=== PATIENT | female | born 1990 | race Caucasian/White ===

== ENCOUNTER 2018-01-26 20:01 | Emergency (ER) | payer MEDICAID, OTHER ==
[~2018-01-26] VITALS: Ht 157.5 cm; Wt 115.2 kg
[~2018-01-26 20:01] MED LIST: DM/P295L2 PO; IBUP400T18 PO
[2018-01-26 20:02] VITALS: BP 156/89
--- NOTE | 2018-01-26 20:39 | PHYS DOC ---
Past History Past Medical History: Hypothyroid, Other Past Surgical History: Cholecystectomy, , Tonsillectomy, Other Alcohol Use: None Drug Use: None Adult General Chief Complaint Chief Complaint: BACK PAIN - NO INJURY HPI HPI 27 year old female presents with low back pain. The patient has had chronic intermittent back pain for a few years. Over the last 3 or 4 days she has had increasing pain specifically in her lower back, worse on the right. At this time it is difficult to stand up straight and she has pain when she walks. The pain is moderate to severe. The patient is 10 weeks with her third child. The patient has not had pain like this before. She denies any recent trauma or any particular inciting event. She had an ultrasound 11 days ago that showed everything was in proper place and there are no complications. She had a UTI at that time and was treated with antibiotics. She has finished those antibiotics. Review of Systems Review of Systems Constitutional: Denies fever or chills [] Eyes: Denies change in visual acuity, redness, or eye pain [] HENT: Denies nasal congestion or sore throat [] Respiratory: Denies cough or shortness of breath [] Cardiovascular: No additional information not addressed in HPI [] GI: Denies abdominal pain, nausea, vomiting, bloody stools or diarrhea [] : Denies dysuria or hematuria [] Musculoskeletal: No back pain[] Integument: Denies rash or skin lesions [] Neurologic: Denies headache, focal weakness or sensory changes [] Endocrine: Denies polyuria or polydipsia [] All other systems were reviewed and found to be within normal limits, except as documented in this note. Allergies Allergies Allergies Coded Allergies Type Severity Reaction Last Updated Verified morphine Allergy Unknown Swelling 11/07/14 No tramadol Allergy Unknown 01/26/18 Yes Physical Exam Physical Exam Constitutional: Well developed, well nourished, no acute distress, non-toxic appearance. [] HENT: Normocephalic, atraumatic, bilateral external ears normal, oropharynx moist, no oral exudates, nose normal. [] Eyes: PERRLA, EOMI, conjunctiva normal, no discharge. [] Neck: Normal range of motion, no tenderness, supple, no stridor. [] Cardiovascular:Heart rate regular rhythm, no murmur [] Lungs & Thorax: Bilateral breath sounds clear to auscultation [] Abdomen: Bowel sounds normal, soft, no tenderness, no masses, no pulsatile masses. [] Skin: Warm, dry, no erythema, no rash. [] Back: Paraspinal tenderness in the lumbar region, pain over the right sacroiliac joint[] Extremities: No tenderness, no cyanosis, no clubbing, ROM intact, no edema. [] Neurologic: Alert and oriented X 3, normal motor function, normal sensory function, no focal deficits noted. [] Psychologic: Affect normal, judgement normal, mood normal. [] Current Patient Data Vital Signs Vital Signs Date Time Temp Pulse Resp B/P (MAP) Pulse Ox O2 Delivery O2 Flow Rate FiO2 01/26/18 20:02 98.3 Room Air EKG EKG [] Radiology/Procedures Radiology/Procedures [] Course & Med Decision Making Course & Med Decision Making Pertinent Labs and Imaging studies reviewed. (See chart for details) The patient's urine is negative for infection. I believe her pain is sacroiliac and paraspinal muscle strain. She is not having any vaginal bleeding or abdominal pain to indicate difficulty with the baby. Since she is , I'm hesitant to give her any muscle relaxers. I have told her that her condition is stable and that she should contact her OB in the morning to discuss the use of muscle relaxers and further treatment. She is in agreement with this plan. She is comfortable with discharge at this time. [] Dragon Disclaimer Dragon Disclaimer This electronic medical record was generated, in whole or in part, using a voice recognition dictation system. Departure Departure: Referrals: MIKI LEON DO (PCP) MAMADOU TERESA DO Jan 26, 2018 20:39
[2018-01-26 21:10] LABS: BILIRUBIN,URINE NEG (NEG); CLARITY,URINE HAZY; COLOR,URINE YELLOW; GLUCOSE,URINE NEG (NEG); NITRITE,URINE NEG (NEG); UROBILINOGEN,URINE 0.2 mg/dL (0.2 mg/dL)
[2018-01-26 21:11] LABS: BACTERIA,URINE FEW /HPF (0-FEW); RBC,URINE OCC /HPF (0-2); SQUAMOUS EPITHELIAL CELL,UR OCC /LPF; WBC,URINE 0 /HPF (0-4)
== END 2018-01-26 21:25 | disposition home or self-care (01) ==
LOC: ER 20:01
DX: O26.891 Other specified pregnancy related conditions, first trimester (principal); M54.5 Low back pain; M53.3 Sacrococcygeal disorders, not elsewhere classified; O99.281 Endocrine, nutritional and metabolic diseases complicating pregnancy, first trimester; E03.9 Hypothyroidism, unspecified; Z3A.10 10 weeks gestation of pregnancy; Z88.5 Allergy status to narcotic agent; Z88.6 Allergy status to analgesic agent
CPT/HCPCS: 81001; 99283

== ENCOUNTER 2018-04-10 15:26 | Emergency (ER) | payer MEDICAID, OTHER ==
[~2018-04-10] VITALS: Ht 157.5 cm; Wt 115.2 kg
[2018-04-10] MEDS ORDERED: IV NORMAL SALINE 1,000ML 1,000 ML IV SCH (15:48)
--- NOTE | 2018-04-10 16:01 | PHYS DOC ---
Past History Past Medical History: Hypothyroid, Other Past Surgical History: Cholecystectomy, , Tonsillectomy, Other Alcohol Use: None Drug Use: None Adult General Chief Complaint Chief Complaint: ABDOMINAL PAIN IN [facility] HPI Patient is a 27-year-old female, was about 21 weeks gestation, who presents to the emergency department for evaluation. The patient states that at about 19 weeks gestation, she noted a bulge in her periumbilical area, which over the past week has become tender. The pain is relatively constant, she has not had any nausea or vomiting. Palpation of the affected area worsens the discomfort. There are no alleviating factors to her symptoms otherwise. She has not had any other abdominal discomfort. She has not had pelvic pain or vaginal bleeding or discharge. She has not had any urinary symptoms. Review of Systems Review of Systems Constitutional: Denies fever or chills [] Eyes: Denies change in visual acuity, redness, or eye pain [] HENT: Denies nasal congestion or sore throat [] Respiratory: Denies cough or shortness of breath [] Cardiovascular: The patient denies any shortness of breath, chest pain, palpitations, or orthopnea [] GI: No additional information not addressed in HPI [] : Denies dysuria or hematuria [] Musculoskeletal: Denies back pain or joint pain [] Integument: Denies rash or skin lesions [] Neurologic: Denies headache, focal weakness or sensory changes [] Endocrine: Denies polyuria or polydipsia [] All other systems were reviewed and found to be within normal limits, except as documented in this note. Current Medications Current Medications Current Medications Medications (Trade) Dose Ordered Sig/[facility] Start Time Stop Time Status Last Admin Dose Admin Sodium Chloride 1,000 ml @ 1,000 mls/hr Q1H 04/10/18 15:48 04/10/18 16:47 Allergies Allergies Allergies Coded Allergies Type Severity Reaction Last Updated Verified morphine Allergy Unknown Swelling 11/07/14 No tramadol Allergy Unknown 01/26/18 Yes Physical Exam Physical Exam PHYSICAL EXAM: CONSTITUTIONAL: Well developed, well nourished HEAD: normocephalic, atraumatic EENT: PERRL, EOMI. Conjunctivae normal color, sclerae non-icteric; moist mucous membranes. NECK: Supple, non-tender; no meningismus. LUNGS: Lungs CTA, breathing even and unlabored. Normal air movement. HEART: Regular rate and rhythm, no murmur CHEST: No deformity; non-tender ABDOMEN: The abdomen is soft, there is tenderness to palpation in the periumbilical area, with a small palpable bulge underneath the umbilicus which is tender to palpation. However, the exam is significantly limited secondary to the patient's abdominal girth. The remainder of the abdomen is soft and non- tender, the uterus is palpable and nontender, no masses or bruits. EXTREM: Normal ROM; no deformity, no calf tenderness. Normal pulses palpable in all extremities. There is no pedal edema. SKIN: No rash; no diaphoresis NEURO: Alert; normal speech and cognition; CN's grossly intact; strength grossly intact without focal deficit. BACK: No CVA TTP. Current Patient Data Lab Results Laboratory Tests Test 04/10/18 15:55 White Blood Count 6.9 x10^3/uL Red Blood Count 4.22 x10^6/uL Hemoglobin 11.3 g/dL Hematocrit 34.5 % Mean Corpuscular Volume 82 fL Mean Corpuscular Hemoglobin 27 pg Mean Corpuscular Hemoglobin Concent 33 g/dL Red Cell Distribution Width 14.4 % Platelet Count 324 x10^3/uL Neutrophils (%) (Auto) 60 % Lymphocytes (%) (Auto) 31 % Monocytes (%) (Auto) 8 % Eosinophils (%) (Auto) 1 % Basophils (%) (Auto) 0 % Neutrophils # (Auto) 4.1 x10^3uL Lymphocytes # (Auto) 2.1 x10^3/uL Monocytes # (Auto) 0.5 x10^3/uL Eosinophils # (Auto) 0.1 x10^3/uL Basophils # (Auto) 0.0 x10^3/uL Sodium Level 137 mmol/L Potassium Level 3.3 mmol/L Chloride Level 103 mmol/L Carbon Dioxide Level 23 mmol/L Anion Gap 11 Blood Urea Nitrogen 3 mg/dL Creatinine 0.5 mg/dL Estimated GFR (Cockcroft-Gault) 149.1 BUN/Creatinine Ratio 6 Glucose Level 94 mg/dL Lactic Acid Level 1.4 mmol/L Calcium Level 8.9 mg/dL Total Bilirubin 0.6 mg/dL Aspartate Amino Transf (AST/SGOT) 16 U/L Alanine Aminotransferase (ALT/SGPT) 18 U/L Alkaline Phosphatase 86 U/L Total Protein 6.7 g/dL Albumin 2.5 g/dL Albumin/Globulin Ratio 0.6 Lipase 76 U/L Current Medications Medications (Trade) Dose Ordered Sig/Elpidio Route PRN Reason Start Time Stop Time Status Last Admin Dose Admin Sodium Chloride 1,000 ml @ 1,000 mls/hr Q1H IV 04/10/18 15:48 04/10/18 16:47 DC 04/10/18 16:27 EKG EKG [] Radiology/Procedures Radiology/Procedures [] Course & Med Decision Making Course & Med Decision Making Pertinent Lab studies reviewed. (See chart for details) [5:35 PM: The patient's condition remains stable. I suspect that she does have a small hernia, the clinical suspicion for an incarcerated hernia is not high, but I cannot exclude at this time. The patient's not having any other abdominal pain to suggest any other etiology of her symptoms as her pain is rather focal in the umbilical area at the site of the hernia. I did recommend the patient have an MRI (she is unable to have a CAT scan due to her ) to definitively rule out incarceration, but the patient declines further testing at this time and would like to go home. Risks and benefits were discussed extensively. I discussed use of Tylenol and the need for close follow-up. The patient states she does have an appointment with her [employer]. Dragon Disclaimer Dragon Disclaimer This electronic medical record was generated, in whole or in part, using a voice recognition dictation system. Departure Departure: Impression: Primary Impression: Abdominal pain affecting , antepartum Additional Impression: Umbilical hernia Disposition: HOME, SELF-CARE Condition: STABLE Referrals: HEIDY GOODMAN MD (PCP) Patient Instructions: Abdominal Pain, Abdominal Pain During , Hernia Additional Instructions: Tylenol as needed for pain. Return to the emergency department for any new or worsening symptoms, development of increasing pain, vomiting, vaginal bleeding or discharge, or any other new or concerning symptoms. Problem Qualifiers GIOVANY TEIXEIRA MD Apr 10, 2018 16:01
[2018-04-10 16:15] LABS: BASO % 0 % (0-3); EOS # 0.1 x10^3/uL (0.0-0.7); EOS % 1 % (0-3); HEMATOCRIT 34.5 % (36.0-47.0); HEMOGLOBIN 11.3 g/dL (12.0-15.5); LYMPH # 2.1 x10^3/uL (1.0-4.8); LYMPH % 31 % (24-48); MEAN CORPUSCULAR HEMOGLOBIN 27 pg (25-35); MEAN CORPUSCULAR HGB CONC 33 g/dL (31-37); MEAN CORPUSCULAR VOLUME 82 fL (79-100); MONO # 0.5 x10^3/uL (0.0-1.1); MONO % 8 % (0-9); NEUT # 4.1 x10^3uL (1.8-7.7); NEUT % 60 % (31-73); PLATELET COUNT 324 x10^3/uL (140-400); RED BLOOD COUNT 4.22 x10^6/uL (3.50-5.40); RED CELL DISTRIBUTION WIDTH 14.4 % (11.5-14.5); WHITE BLOOD COUNT 6.9 x10^3/uL (4.0-11.0)
[2018-04-10 16:30] LABS: ALBUMIN 2.5 g/dL (3.4-5.0); ALBUMIN/GLOBULIN RATIO 0.6 (1.0-1.7); CALCIUM 8.9 mg/dL (8.5-10.1); CREATININE 0.5 mg/dL (0.6-1.0); GFR 149.1; POTASSIUM 3.3 mmol/L (3.5-5.1); TOTAL BILIRUBIN 0.6 mg/dL (0.2-1.0); TOTAL PROTEIN 6.7 g/dL (6.4-8.2)
[2018-04-10 17:51] VITALS: BP 120/71
== END 2018-04-10 17:54 | disposition home or self-care (01) ==
LOC: ER 15:26
DX: K42.9 Umbilical hernia without obstruction or gangrene (principal); O26.892 Other specified pregnancy related conditions, second trimester; E03.9 Hypothyroidism, unspecified; Z3A.21 21 weeks gestation of pregnancy; Z90.49 Acquired absence of other specified parts of digestive tract; Z98.890 Other specified postprocedural states; Z88.6 Allergy status to analgesic agent; Z88.5 Allergy status to narcotic agent
CPT/HCPCS: 36415; 80053; 83605; 83690; 85025; 99283-25; J7030

== ENCOUNTER 2018-06-01 09:32 | Emergency (ER) | payer MEDICAID, OTHER ==
[~2018-06-01] VITALS: Ht 157.5 cm; Wt 115.2 kg
[2018-06-01 09:32] VITALS: BP 143/67
[2018-06-01] MEDS ORDERED: ONDANSETRON PF 4 MG/2 ML VIAL. IV ONE (10:15)
[2018-06-01] MEDS ORDERED: IV NORMAL SALINE 1,000ML 1,000 ML IV SCH (10:15)
[2018-06-01 10:35] LABS: BASO % 0 % (0-3); EOS # 0.1 x10^3/uL (0.0-0.7); EOS % 0 % (0-3); HEMATOCRIT 33.9 % (36.0-47.0); LYMPH # 1.8 x10^3/uL (1.0-4.8); LYMPH % 14 % (24-48); MEAN CORPUSCULAR HEMOGLOBIN 24 pg (25-35); MEAN CORPUSCULAR HGB CONC 33 g/dL (31-37); MEAN CORPUSCULAR VOLUME 74 fL (79-100); MONO # 0.7 x10^3/uL (0.0-1.1); MONO % 5 % (0-9); NEUT # 10.1 x10^3uL (1.8-7.7); NEUT % 80 % (31-73); PLATELET COUNT 379 x10^3/uL (140-400); RED BLOOD COUNT 4.61 x10^6/uL (3.50-5.40); RED CELL DISTRIBUTION WIDTH 16.1 % (11.5-14.5); WHITE BLOOD COUNT 12.7 x10^3/uL (4.0-11.0)
[2018-06-01 10:47] LABS: ALBUMIN 2.5 g/dL (3.4-5.0); ALBUMIN/GLOBULIN RATIO 0.5 (1.0-1.7); CALCIUM 9.1 mg/dL (8.5-10.1); CREATININE 0.5 mg/dL (0.6-1.0); GFR 149.1; POTASSIUM 3.8 mmol/L (3.5-5.1); TOTAL BILIRUBIN 0.9 mg/dL (0.2-1.0); TOTAL PROTEIN 7.5 g/dL (6.4-8.2)
[2018-06-01] MEDS ORDERED: ONDA4TAB7 PO (11:09)
[2018-06-01] MEDS ORDERED: CEPH-264 PO (11:09)
--- NOTE | 2018-06-01 11:09 | PHYS DOC ---
Past History Past Medical History: Hypothyroid, Other Past Surgical History: Cholecystectomy, , Tonsillectomy, Other Alcohol Use: None Drug Use: None Adult General Chief Complaint Chief Complaint: VOMITING IN HPI HPI Patient is a 27 year old female who presents with a complaining of nausea and vomiting and diarrhea since this morning. Patient is at 28 weeks of gestation and denies abdominal pain, vaginal bleeding or discharge, urinary symptoms, fever and chills, sick contact. She feels movement. Review of Systems Review of Systems Constitutional: Denies fever or chills [] Eyes: Denies change in visual acuity, redness, or eye pain [] HENT: Denies nasal congestion or sore throat [] Respiratory: Denies cough or shortness of breath [] Cardiovascular: No additional information not addressed in HPI [] GI: Denies abdominal pain, reports nausea, vomiting, diarrhea [] : Denies dysuria or hematuria [] Musculoskeletal: Denies back pain or joint pain [] Integument: Denies rash or skin lesions [] Neurologic: Denies headache, focal weakness or sensory changes [] Endocrine: Denies polyuria or polydipsia [] All other systems were reviewed and found to be within normal limits, except as documented in this note. Current Medications Current Medications Current Medications Medications (Trade) Dose Ordered Sig/[facility] Start Time Stop Time Status Last Admin Dose Admin Ondansetron HCl (Zofran) 4 mg 1X ONCE 06/01/18 10:15 06/01/18 10:16 DC 06/01/18 10:15 4 MG Sodium Chloride 1,000 ml @ 1,000 mls/hr Q1H 06/01/18 10:15 06/01/18 11:14 06/01/18 10:15 1,000 MLS/HR Allergies Allergies Allergies Coded Allergies Type Severity Reaction Last Updated Verified morphine Allergy Unknown Swelling 11/07/14 No tramadol Allergy Unknown 01/26/18 Yes Physical Exam Physical Exam Constitutional: Well developed, well nourished, mild acute distress, non-toxic appearance. [] HENT: Normocephalic, atraumatic, oropharynx moist, no oral exudates, nose normal. [] Eyes: PERRLA, EOMI, conjunctiva normal, no discharge. [] Neck: Normal range of motion, no tenderness, supple, no stridor. [] Cardiovascular:Heart rate regular rhythm, no murmur [] Lungs & Thorax: Bilateral breath sounds clear to auscultation [] Abdomen: Bowel sounds normal, soft, no tenderness, no masses, no pulsatile masses, gravid abdomen, no contraction or tenderness. [] Skin: Warm, dry, no erythema, no rash. [] Back: No tenderness, no CVA tenderness. [] Extremities: No tenderness, no cyanosis, no clubbing, ROM intact, no edema. [] Neurologic: Alert and oriented X 3, normal motor function, normal sensory function, no focal deficits noted. [] Psychologic: Affect normal, judgement normal, mood normal. [] Current Patient Data Lab Results Laboratory Tests Test 06/01/18 10:19 White Blood Count 12.7 x10^3/uL (4.0-11.0) H Red Blood Count 4.61 x10^6/uL (3.50-5.40) Hemoglobin 11.0 g/dL (12.0-15.5) L Hematocrit 33.9 % (36.0-47.0) L Mean Corpuscular Volume 74 fL (79-100) L Mean Corpuscular Hemoglobin 24 pg (25-35) L Mean Corpuscular Hemoglobin Concent 33 g/dL (31-37) Red Cell Distribution Width 16.1 % (11.5-14.5) H Platelet Count 379 x10^3/uL (140-400) Neutrophils (%) (Auto) 80 % (31-73) H Lymphocytes (%) (Auto) 14 % (24-48) L Monocytes (%) (Auto) 5 % (0-9) Eosinophils (%) (Auto) 0 % (0-3) Basophils (%) (Auto) 0 % (0-3) Neutrophils # (Auto) 10.1 x10^3uL (1.8-7.7) H Lymphocytes # (Auto) 1.8 x10^3/uL (1.0-4.8) Monocytes # (Auto) 0.7 x10^3/uL (0.0-1.1) Eosinophils # (Auto) 0.1 x10^3/uL (0.0-0.7) Basophils # (Auto) 0.0 x10^3/uL (0.0-0.2) Sodium Level 138 mmol/L (136-145) Potassium Level 3.8 mmol/L (3.5-5.1) Chloride Level 103 mmol/L (98-107) Carbon Dioxide Level 21 mmol/L (21-32) Anion Gap 14 (6-14) Blood Urea Nitrogen 5 mg/dL (7-20) L Creatinine 0.5 mg/dL (0.6-1.0) L Estimated GFR (Cockcroft-Gault) 149.1 BUN/Creatinine Ratio 10 (6-20) Glucose Level 87 mg/dL (70-99) Calcium Level 9.1 mg/dL (8.5-10.1) Total Bilirubin 0.9 mg/dL (0.2-1.0) Aspartate Amino Transferase (AST) 21 U/L (15-37) Alanine Aminotransferase (ALT) 11 U/L (14-59) L Alkaline Phosphatase 141 U/L (46-116) H Total Protein 7.5 g/dL (6.4-8.2) Albumin 2.5 g/dL (3.4-5.0) L Albumin/Globulin Ratio 0.5 (1.0-1.7) L Lipase 84 U/L (73-393) EKG EKG [] Radiology/Procedures Radiology/Procedures [] Course & Med Decision Making Course & Med Decision Making Pertinent Labs reviewed. (See chart for details) Evaluation of patient in ER showed 27-year-old female patient at 20 weeks of gestation complaining of nausea and vomiting can diarrhea without abdominal pain or change of movement. Patient treated with IV fluid and Zofran and Toradol and tolerated oral intake. Labs was unremarkable except for UTI. Plan discharge patient home with diagnose of acute gastroenteritis and UTI in . Dragon Disclaimer Dragon Disclaimer This electronic medical record was generated, in whole or in part, using a voice recognition dictation system. Departure Departure: Impression: Primary Impression: Acute gastroenteritis Additional Impression: Urinary tract infection during Disposition: 01 HOME, SELF-CARE (at 1107) Condition: IMPROVED Referrals: HEIDY GOODMAN MD (PCP) Patient Instructions: - Urinary Tract Infection, Viral Gastroenteritis Additional Instructions: Drink plenty of liquids Follow-up with your primary care physician in 3-5 days Return to ER if not getting better Do not take solid food today Scripts Ondansetron Hcl (ZOFRAN) 4 Mg Tablet 1 TAB PO Q6HRS for nausea and vomiting, #12 TAB Prov: TOR MATHEW MD 06/01/18 Cephalexin (KEFLEX) 500 Mg Capsule 2 CAP PO Q12HR for infection, #28 CAP Prov: TOR MATHEW MD 06/01/18 Problem Qualifiers TOR MATHEW MD Jun 01, 2018 11:09
[2018-06-01 11:49] LABS: BILIRUBIN,URINE NEG (NEG); CLARITY,URINE CLOUDY; COLOR,URINE AMBER; GLUCOSE,URINE NEG (NEG)
[2018-06-01 11:50] LABS: NITRITE,URINE POS (NEG); UROBILINOGEN,URINE 0.2 mg/dL (0.2 mg/dL)
== END 2018-06-01 11:35 | disposition home or self-care (01) ==
LOC: ER 09:32
DX: O23.42 Unspecified infection of urinary tract in pregnancy, second trimester (principal); O98.512 Other viral diseases complicating pregnancy, second trimester; K52.9 Noninfective gastroenteritis and colitis, unspecified; O99.282 Endocrine, nutritional and metabolic diseases complicating pregnancy, second trimester; E03.9 Hypothyroidism, unspecified; Z3A.20 20 weeks gestation of pregnancy; Z88.5 Allergy status to narcotic agent; Z88.6 Allergy status to analgesic agent
CPT/HCPCS: 36415; 80053; 81003; 83690; 85025; 96361; 96374; 99283; J2405; J7030

== ENCOUNTER 2018-10-25 14:11 | Emergency (ER) | payer SELFPAY ==
[~2018-10-25] VITALS: Ht 157.5 cm; Wt 118.4 kg
[~2018-10-25 14:11] MED LIST changes: +CEPH-264 PO; +ONDA4TAB7 PO
[2018-10-25] MEDS ORDERED: KETOROLAC 60 MG/2 ML VIAL. IM ONE (15:00)
[2018-10-25] MEDS ORDERED: ORPHENADRINE CITRATE 60 MG/2 ML VIAL. IM ONE (15:00)
[2018-10-25] MEDS ORDERED: METH-38 PO (15:45)
[2018-10-25] MEDS ORDERED: ACET-704 PO (15:45)
--- NOTE | 2018-10-25 15:45 | PHYS DOC ---
Past History Past Medical History: Hypothyroid, Other Past Surgical History: Cholecystectomy, , Tonsillectomy, Other Alcohol Use: None Drug Use: None Adult General Chief Complaint Chief Complaint: Neck Pain HPI HPI Patient is a 28-year-old female who presents with complaint of neck and upper back pain that has been an ongoing issue for several months. Patient indicates that today symptoms have gotten worse. She states that she has been seen for th is before and was told by the doctors because she looks at her cell phone too much. She rates pain at an 8 out of 10. She states the pain is worsened if she tries to turn her neck. She denies any fever, headache or eye pain. She denies any paresthesia or radicular type symptoms.[] Review of Systems Review of Systems Constitutional: Denies fever or chills [] Respiratory: Denies cough or shortness of breath [] Cardiovascular: No additional information not addressed in HPI [] Musculoskeletal: Positive neck and upper back pain [] Integument: Denies rash or skin lesions [] Neurologic: Denies headache, focal weakness or sensory changes [] Current Medications Current Medications Current Medications Medications (Trade) Dose Ordered Sig/Elpidio Start Time Stop Time Status Last Admin Dose Admin Ketorolac Tromethamine (Toradol Im) 60 mg 1X ONCE 10/25/18 15:00 10/25/18 15:01 DC 10/25/18 15:16 60 MG Orphenadrine Citrate (Norflex) 60 mg 1X ONCE 10/25/18 15:00 10/25/18 15:01 DC 10/25/18 15:16 60 MG Allergies Allergies Allergies Coded Allergies Type Severity Reaction Last Updated Verified morphine Allergy Unknown Swelling 11/07/14 No tramadol Allergy Unknown 01/26/18 Yes Physical Exam Physical Exam Constitutional: Well developed, well nourished, no acute distress, non-toxic appearance. [] Neck: Decreased range of motion, with reported tenderness to palpation in the suboccipital as well as bilateral cervical strap muscles. [] Cardiovascular:Heart rate regular rhythm, no murmur [] Lungs & Thorax: Bilateral breath sounds clear to auscultation [] Skin: Warm, dry, no erythema, no rash. [] Back: There is tenderness to palpation in the left trapezius and levator scapula muscles. [] Current Patient Data Vital Signs Vital Signs Date Time Temp Pulse Resp B/P (MAP) Pulse Ox O2 Delivery O2 Flow Rate FiO2 10/25/18 14:11 98.3 84 20 98 Room Air EKG EKG [] Radiology/Procedures Radiology/Procedures [] Course & Med Decision Making Course & Med Decision Making Pertinent Labs and Imaging studies reviewed. (See chart for details) [] Dragon Disclaimer Dragon Disclaimer This electronic medical record was generated, in whole or in part, using a voice recognition dictation system. Departure Departure: Impression: Primary Impression: Neck pain Disposition: HOME, SELF-CARE Condition: STABLE Referrals: HEIDY GOODMAN MD (PCP) Patient Instructions: Musculoskeletal Pain Scripts Methocarbamol (ROBAXIN-750) 750 Mg Tablet 1 TAB PO TID PRN for MUSCLE SPASMS, #15 TAB Prov: RADAMES SCHROEDER Jr. DO 10/25/18 Acetaminophen With Codeine (TYLENOL WITH CODEINE #3 TABLET) 1 Each Tablet 1 TAB PO Q4-6HRS PRN for PAIN, #10 TAB Prov: RADAMES SCHROEDER Jr. DO 10/25/18 RADAMES SCHROEDER Jr. DO Oct 25, 2018 15:45
[2018-10-25 15:50] VITALS: BP 126/42
== END 2018-10-25 16:24 | disposition home or self-care (01) ==
LOC: ER 14:11
DX: M54.2 Cervicalgia (principal); M54.6 Pain in thoracic spine; E03.9 Hypothyroidism, unspecified; Z90.49 Acquired absence of other specified parts of digestive tract; Z98.890 Other specified postprocedural states; Z88.5 Allergy status to narcotic agent; Z88.6 Allergy status to analgesic agent
CPT/HCPCS: 96372; 99284; J1885; J2360

== ENCOUNTER 2019-05-10 21:21 | Emergency (ER) | payer OTHER ==
[~2019-05-10] VITALS: Ht 157.5 cm; Wt 123.0 kg
[~2019-05-10 21:21] MED LIST changes: +ACET-704 PO; +METH-38 PO
[2019-05-10 21:24] VITALS: BP 134/77
[2019-05-10] MEDS ORDERED: IBUP400T18 PO (21:35)
[2019-05-10] MEDS ORDERED: IBUPROFEN 600 MG TABLET. PO ONE ×2 (21:37→21:45)
--- NOTE | 2019-05-12 07:36 | PHYS DOC ---
General Chief Complaint: BURN/SMOKE INHALATION Stated Complaint: HAND INJURY/BURN Time Seen by MD: 21:32 Source: patient Exam Limitations: no limitations History of Present Illness Initial Comments Patient is a 28 year old right-handed female presents with grease splash snow to dorsum of her left hand overlying first finger web. Patient with outlines of 3-4 large grease drops over interphalangeal webspace. No blistering, minimal tenderness on exam. Injury occurred just prior to ED arrival. Onset: just prior to arrival Pain/Injury Location: left thumb Method of Injury: burn Modifying Factors: improves with cold therapy Allergies: Coded Allergies: morphine (Unverified Allergy, Unknown, Swelling, 11/07/14) left arm tramadol (Verified Allergy, Unknown, 01/26/18) Past Medical History Medical History: no pertinent history Review of Systems Constitutional: no symptoms reported EENTM: no symptoms reported Respiratory: no symptoms reported Cardiovascular: no symptoms reported Gastrointestinal: no symptoms reported Genitourinary: no symptoms reported Musculoskeletal: no symptoms reported Skin: see HPI Psychiatric/Neurological: no symptoms reported All Other Systems: Reviewed and Negative Physical Exam Hand: soft tissue tenderness (3-4 large grease drops over L 1sstinterphalangeal webspace. No blistering, minimal tenderness on exam), swelling Orders, Labs, Meds Recommend port of care and watchful waiting and comp follow-up MAMADOU CABALLERO DO May 12, 2019 07:36
== END 2019-05-10 21:42 | disposition home or self-care (01) ==
LOC: ER 21:21
DX: T23.002A Burn of unspecified degree of left hand, unspecified site, initial encounter (principal); Z88.5 Allergy status to narcotic agent; Z88.6 Allergy status to analgesic agent; X10.2XXA Contact with fats and cooking oils, initial encounter; Y93.89 Activity, other specified; Y92.89 Other specified places as the place of occurrence of the external cause; Y99.8 Other external cause status
CPT/HCPCS: 99282

== ENCOUNTER 2019-12-21 21:32 | Emergency (ER) | payer MEDICAID, OTHER ==
[~2019-12-21] VITALS: Ht 157.5 cm; Wt 104.6 kg
[2019-12-21 21:35] VITALS: BP 106/68
--- NOTE | 2019-12-21 22:10 | PHYS DOC ---
Past History Past Medical History: Anxiety, Hypothyroid Past Surgical History: Cholecystectomy, , Tonsillectomy, Tubal ligation, Other Additional Past Surgical Histo: LEFT UPPER ARM Alcohol Use: None Drug Use: None Adult General Chief Complaint Chief Complaint: UPPER EXTREMITY PAIN [place] [employer] HPI Patient is a 29-year-old female who presents for left upper extremity pain this is an acute on chronic phenomena. Patient reports having a traumatic injury greater than 2 years ago and subsequently having orthopedic intervention to her left humerus. Patient reports waxing waning pain ever since. Patient reports acute pain started 2 months ago without any known inciting event injury or [facility] hanism of action. Patient admits to generalized pain which is focal to left forearm compartment and left elbow radiating up to her left upper extremity. She reports being debilitated and unable to perform activities of daily living but admits she cares for her without issues. Patient recently seen and examined by her primary care physician who performed comprehensive radiographs of entire left upper extremity Review of Systems Review of Systems Fourteen body systems of review of systems have been reviewed. See HPI for pertinent positives and negative responses, other [place] all other systems are negative, non-pertinent or non-contributory Allergies Allergies Allergies Coded Allergies Type Severity Reaction Last Updated Verified morphine Allergy Unknown Swelling 11/07/14 No tramadol Allergy Unknown 01/26/18 Yes Physical Exam Physical Exam Constitutional: Well developed, well nourished, no acute distress, non-toxic appearance. HENT: Normocephalic, atraumatic, bilateral external ears normal, oropharynx moist, no oral exudates, nose normal. Eyes: PERRLA, EOMI, conjunctiva normal, no discharge. Neck: Normal range of motion, no tenderness, supple, no stridor. Cardiovascular: Heart rate regular, sinus rhythm, no murmurs rubs or gallops Lungs & Thorax: Bilateral breath sounds clear to auscultation Abdomen: Bowel sounds normal, soft, no tenderness, no masses, no pulsatile masses. Nonsurgical abdomen, no peritoneal signs Skin: Warm, dry, no erythema, no rash. Back: No tenderness, no CVA tenderness. Extremities: No cyanosis, no clubbing, ROM intact, no edema. Shoulder Appearance of Glenohumeral joint normal Nontender Clavicle and Humerus Sensation over deltoid in tact Neurovascular exam distally in tact per routine Compartments surrounding are soft Elbow Distal humerus tender with brisk touch Olecranon tender with brisk touch Medial and Lateral epicondyles tender to extremely light palpation without any palpable crepitus, step-offs or bony abnormalities Diminished range of motion in all planes due to pain with full strength Neurovascular exam distally in tact per routine Compartments surrounding are soft but tender Hand Sensation: SILT in FF/IF dorsal, proximal (radial), SF tip (ulnar), IF volar tip (median) Motor: + Thumbs Up (radial), OK sign (median), X with 2nd 3rd fingers (ulnar) Flexion & Extension 1-5 against resistance, Wrist/finger extension off table (radial), Finger AB/AD-duction (ulnar), Thumb to pinky (median). Vascular: CR<2s in all digits Compartments Soft Neurologic: Alert and oriented X 3, grossly normal motor & sensory function, no focal deficits noted. Psychologic: Affect normal, judgement normal, anxious mood Current Patient Data Vital Signs Vital Signs Date Time Temp Pulse Resp B/P (MAP) Pulse Ox O2 Delivery O2 Flow Rate FiO2 12/21/19 21:35 97.5 82 20 106/68 (81) 96 Room Air EKG EKG [] Radiology/Procedures Radiology/Procedures [] Course & Med Decision Making Course & Med Decision Making Well-appearing ambulatory patient seen on immediate ER arrival ABCs non-concerning Comprehensive history and physical exam obtained Reviewed prior outpatient work-up consistent for negative radiographs of entire left upper extremity. She has not had any traumatic injury or concerning mechanisms of injury since that time, no further work-up in ER is indicated At present, there is no emergent or surgical findings. I do not feel patient requires any further ER management at this time I advised continued supportive care with ice, rehab stretches and exercises for left upper extremity, and close PCP and orthopedic follow-up in outpatient setting. NSAIDs and Tylenol are advised for PRN pain control [employer] was reviewed, patient has history of sporadic narcotic distribution with most recent distribution given December 04, 2019 at local ER for similar complaints, again, I do not feel these are indicated at present Strict return precautions were discussed with good understanding by patient, all questions and concerns addressed prior to ER departure in stable condition with outpatient PCP and orthopedic follow-up advised Dale Disclaimer Dale Disclaimer This electronic medical record was generated, in whole or in part, using a voice recognition dictation system. Departure Departure: Impression: Primary Impression: Chronic pain of left upper extremity Disposition: 01 HOME/RESIDENCE PRIOR TO ADM Condition: STABLE Referrals: HEIDY GOODMAN MD (PCP) Patient Instructions: Elbow Exercises, Generic-SportsMed, RICE - Routine Care for Injuries, Wrist Exercises, Generic-SportsMed Justification of Admission: Justification of Admission: Justification of Admission Dx: N/A ANKUR FERNANDEZ DO Dec 21, 2019 22:10
== END 2019-12-21 22:36 | disposition home or self-care (01) ==
LOC: ER 21:32
DX: G89.29 Other chronic pain (principal); M79.602 Pain in left arm; E03.9 Hypothyroidism, unspecified; Z88.5 Allergy status to narcotic agent; Z88.6 Allergy status to analgesic agent
CPT/HCPCS: 29125; 99283

== ENCOUNTER 2020-08-01 00:29 | Emergency (ER) | payer MEDICAID ==
[~2020-08-01] VITALS: Ht 157.5 cm; Wt 108.2 kg
--- NOTE | 2020-08-01 00:31 | PHYS DOC ---
Past History Past Medical History: Anxiety, Hypothyroid Past Surgical History: Cholecystectomy, , Tonsillectomy, Tubal ligation, Other Additional Past Surgical Histo: LEFT UPPER ARM Alcohol Use: None Drug Use: None General Adult HPI: HPI: " My lt. ear is killing me.. ".. I got some nodes on my neck and back my head..." " It my son that usually get the ear infections..." Patient is a 29 year old female who presents with above hx and complaints of severe left ear pain. Pain has been present last several days. Patient has been using things attempt to clean her left ear. Patient also has complaints of adenopathy at angle of left jaw and posterior nuchal line. Patient denies any history immunosuppression. No history of travel. No history of ill contacts. Normally healthy. Patient normally follows with Dr. Goodman. Review of Systems: Review of Systems: Constitutional: Denies fever or chills Eyes: Denies change in visual acuity HENT: Complains of left ear pain and adenopathy Respiratory: Denies cough or shortness of breath Cardiovascular: Denies chest pain or edema GI: Denies abdominal pain, nausea, vomiting, bloody stools or diarrhea : Denies dysuria Musculoskeletal: Denies back pain or joint pain Integument: Denies rash Neurologic: Denies headache, focal weakness or sensory changes Endocrine: Denies polyuria or polydipsia Lymphatic: Denies swollen glands Psychiatric: Denies depression or anxiety Family History: Family History: Noncontributory to presentation Current Medications: Current Meds: See nursing for home meds Allergies: Allergies: Allergies Coded Allergies Type Severity Reaction Last Updated Verified morphine Allergy Unknown Swelling 11/07/14 No tramadol Allergy Unknown 01/26/18 Yes Physical Exam: PE: Constitutional: Moderate acute distress, non-toxic appearance. [] HENT: Normocephalic, atraumatic, left ear has excoriation of canal and inflammation, there is some TM inflammation, there is some adenopathy at angle of left mandible and posterior nuclear line. Oropharynx moist, no oral exudates, nose mild congestion turbinates. Eyes: PERRLA, EOMI, conjunctiva normal, no discharge. [] Neck: Normal range of motion, no tenderness, supple, no stridor. Mild adenopathy on left. Cardiovascular:Heart rate regular rhythm, no murmur [] Lungs & Thorax: Bilateral breath sounds equal apex on auscultation [] Abdomen: Bowel sounds normal, soft, no tenderness, no masses, no pulsatile masses. Obese. Old surgical scar. Skin: Warm, dry, no erythema, no rash. [] Back: No tenderness, no CVA tenderness. [] Extremities: No tenderness, no cyanosis, no clubbing, ROM intact, no edema. [] Neurologic: Alert and oriented X 3, normal motor function, normal sensory function, no focal deficits noted. [] Psychologic: Affect anxious, judgement normal, mood normal. [] EKG: EKG: [] Radiology/Procedures: Radiology/Procedures: [] Heart Score: C/O Chest Pain: N/A Risk Factors: Risk Factors: DM, Current or recent (<one month) smoker, HTN, HLP, family history of CAD, obesity. Risk Scores: Score 0 - 3: 2.5% MACE over next 6 weeks - Discharge Home Score 4 - 6: 20.3% MACE over next 6 weeks - Admit for Clinical Observation Score 7 - 10: 72.7% MACE over next 6 weeks - Early Invasive Strategies Course & Med Decision Making: Course & Med Decision Making Pertinent Labs and Imaging studies reviewed. (See chart for details) Patient to take Tylenol and ibuprofen as needed for discomfort. May try Benadryl 25 to 50 mg up to 4 times a day to add to reduction in fluid behind TM. Patient use Cortisporin eardrops 2 drops to the left ear 4 times a day. Patient take Bactrim DS twice a day x7 days. Follow-up primary care. Return if any concerns. Impression : 1. Otitis externa and media [] Dragon Disclaimer: Dragon Disclaimer: This electronic medical record was generated, in whole or in part, using a voice recognition dictation system. Departure Departure: Referrals: HEIDY GOODMAN MD (PCP) Scripts Sulfamethoxazole/Trimethoprim (BACTRIM DS TABLET) 1 Each Tablet 1 TAB PO BID for Otitis for 7 Days, #14 TAB 0 Refills Prov: RAMONE POWELL MD 08/01/20 Dale Disclaimer This chart was dictated in whole or in part using Voice Recognition software in a busy, high-work load, and often noisy Emergency Department environment. It may contain unintended and wholly unrecognized errors or omissions. RAMONE PWOELL MD Aug 01, 2020 00:31
[2020-08-01] MEDS ORDERED: SULF1TAB24 PO (00:57)
[2020-08-01] MEDS ORDERED: SMZ/TMP 800/160MG TABLET. PO ONE (01:00)
[2020-08-01] MEDS ORDERED: NEOMYCIN/POLYMYXIN/HC OTIC SUSPENSION 10ML BOTTLE. AS ONE (01:00)
[2020-08-01] MEDS ORDERED: ACETAMINOPHEN 500 MG TABLET PO ONE (01:00)
[2020-08-01 01:10] VITALS: BP 134/86
== END 2020-08-01 01:10 | disposition home or self-care (01) ==
LOC: ER 00:29
DX: H60.92 Unspecified otitis externa, left ear (principal); H66.92 Otitis media, unspecified, left ear; E03.9 Hypothyroidism, unspecified; Z88.5 Allergy status to narcotic agent; Z88.6 Allergy status to analgesic agent
CPT/HCPCS: 99283; 99284

== ENCOUNTER 2021-01-06 10:27 | Emergency (ER) | payer MEDICAID ==
[~2021-01-06] VITALS: Ht 157.5 cm; Wt 110.7 kg
[~2021-01-06 10:27] MED LIST changes: +SULF1TAB24 PO
[2021-01-06] MEDS ORDERED: IV NORMAL SALINE 1,000ML 1,000 ML IV ONE (11:00)
[2021-01-06] MEDS ORDERED: KETOROLAC 15 MG/ML VIAL. IVP ONE (11:00)
--- NOTE | 2021-01-06 11:06 | PHYS DOC ---
Past History Past Medical History: Anxiety, Hypothyroid, Other Additional Past Medical Histor: alopecia, umbilical hernia (ROLA RUIZ APRN) Past Surgical History: Cholecystectomy, , Tonsillectomy, Tubal ligation, Other Additional Past Surgical Histo: LEFT UPPER ARM (ROLA RUIZ APRN) Alcohol Use: None Drug Use: None (ROLA RUIZ APRN) General Adult EDM: Chief Complaint: ABDOMINAL PAIN HPI: HPI: Patient is a 30-year-old female who presents with umbilical abdominal pain that started 2 days ago. Patient states the pain has been constant and sharp. Denies nausea/vomiting/diarrhea. Denies fevers. Last menstrual period was 12/06. Patient states last bowel movement was this morning which was normal for her. Patient took Tylenol this morning with no relief. Patient does report a history of umbilical hernia. (ROLA RUIZ APRN) Review of Systems: Review of Systems: Constitutional: Denies fever or chills Eyes: Denies change in visual acuity HENT: Denies nasal congestion or sore throat Respiratory: Denies cough or shortness of breath Cardiovascular: Denies chest pain or edema GI: Reports umbilical abdominal pain. Denies nausea, vomiting, bloody stools or diarrhea : Denies dysuria Musculoskeletal: Denies back pain or joint pain Integument: Denies rash Neurologic: Denies headache, focal weakness or sensory changes Endocrine: Denies polyuria or polydipsia Lymphatic: Denies swollen glands Psychiatric: Denies depression or anxiety (ROLA RUIZ APRN) Allergies: Allergies: Allergies Coded Allergies Type Severity Reaction Last Updated Verified morphine Allergy Unknown Swelling 11/07/14 No tramadol Allergy Unknown 01/26/18 Yes (ROLA RUIZ APRN) Physical Exam: PE: Constitutional: Well developed, well nourished, no acute distress, non-toxic appearance. [] HENT: Normocephalic, atraumatic, bilateral external ears normal, oropharynx moist, no oral exudates, nose normal. [] Eyes: PERRLA, EOMI, conjunctiva normal, no discharge. [] Neck: Normal range of motion, no tenderness, supple, no stridor. [] Cardiovascular:Heart rate regular rhythm, no murmur [] Lungs & Thorax: Bilateral breath sounds clear to auscultation [] Abdomen: Bowel sounds normal, soft, umbilical tenderness, no masses, no pulsatile masses. [] Skin: Warm, dry, no erythema, no rash. [] Back: No tenderness, no CVA tenderness. [] Extremities: No tenderness, no cyanosis, no clubbing, ROM intact, no edema. [] Neurologic: Alert and oriented X 3, normal motor function, normal sensory function, no focal deficits noted. [] Psychologic: Affect normal, judgement normal, mood normal. [] (ROLA RUIZ APRN) Current Patient Data: Vital Signs: Vital Signs Date Time Temp Pulse Resp B/P (MAP) Pulse Ox O2 Delivery O2 Flow Rate FiO2 01/06/21 10:35 98.0 95 18 110/77 (88) 97 Room Air (ROLA RUIZ APRN) EKG: EKG: [] (ROLA RUIZ APRN) Radiology/Procedures: Radiology/Procedures: []CT ABDOMEN+PELVIS WO History: Umbilical pain for 2 days. Comparison: None. Technique: Noncontrast CT of the abdomen and pelvis. Findings: The lung bases are clear. The nonopacified liver, pancreas, spleen, adrenals, and kidneys are unremarkable. The gallbladder surgically absent. The stomach, small bowel, appendix, and colon are unremarkable. The bladder, uterus and adnexa are within normal limits. There are few prominent left periaortic lymph nodes measuring up to 6 mm diameter. No free intraperitoneal fluid or air. Umbilical hernia with 1.6 x 1.7 cm neck containing 5.3 x 6.0 x 4.5 cm protrusion of mesenteric fat which demonstrates mild hazy attenuation. Transitional lumbosacral anatomy with a partially lumbarized S1 and rudimentary S1-S2 disc. Impression: 1. Umbilical hernia containing mildly inflamed appearing peritoneal fat measuring 5.3 x 6.0 x 4.5 cm. ------ Exposure: One or more of the following individualized dose reduction techniques were utilized for this examination: 1. Automated exposure control 2. Adjustment of the mA and/or kV according to patient size 3. Use of iterative reconstruction technique. Electronically signed by: Ralph Jones MD (01/06/2021 11:52 AM) [id number] (ROLA RUIZ APRN) Heart Score: C/O Chest Pain: No Risk Factors: Risk Factors: DM, Current or recent (<one month) smoker, HTN, HLP, family history of CAD, obesity. Risk Scores: Score 0 - 3: 2.5% MACE over next 6 weeks - Discharge Home Score 4 - 6: 20.3% MACE over next 6 weeks - Admit for Clinical Observation Score 7 - 10: 72.7% MACE over next 6 weeks - Early Invasive Strategies (ROLA RUIZ APRN) Course & Med Decision Making: Course & Med Decision Making Pertinent Labs and Imaging studies reviewed. (See chart for details) [] 30-year-old female who presents with umbilical, abdominal pain that started 2 days ago. Patient reports pain is sharp and constant. Denies nausea vomiting and diarrhea. Patient is afebrile. Patient reports pain with palpitation of abdomen. Reports history of umbilical hernia. Patient given Toradol and normal saline bolus CT of abdomen pelvis shows umbilical hernia. No strangulation. All labs unremarkable. UA positive for bacteria. Sent home on Macrobid. Push fluids. Patient's pain has improved. Discussed results with patient. Patient to take ibuprofen and Tylenol at home for pain. Patient states that she understands discharge instructions. Patient to follow-up with her PCP for further evaluation and management. Patient is hemodynamically stable upon disposition. (ROLA RUIZ APRN) Dragon Disclaimer: Dragon Disclaimer: This electronic medical record was generated, in whole or in part, using a voice recognition dictation system. (ROLA RUIZ APRN) Departure Departure: Impression: Primary Impression: Umbilical hernia Qualified Codes: K42.9 - Umbilical hernia without obstruction or gangrene Additional Impression: UTI (urinary tract infection) Qualified Codes: N30.00 - Acute cystitis without hematuria Disposition: HOME / SELF CARE / HOMELESS Condition: STABLE Referrals: HEIDY GOODMAN MD (PCP) Patient Instructions: Hernia Additional Instructions: You were seen in the emergency room for abdominal pain. CT of your abdomen showed umbilical hernia. Urine was positive for bacteria. I am sending you home with a prescription. Please make sure you take in full and as directed. D rink plenty of fluids. Please call your PCP make a follow-up appointment for further management. Return to the emergency room if you have worsening symptoms or concerns. EMERGENCY DEPARTMENT GENERAL DISCHARGE INSTRUCTIONS Thank you for coming to [facility] (ED) today and trusting us with you care. We trust that you had a positivie experience in our Emergency Department. If you wish to speak to the department management, you may call the director at [phone]. YOUR FOLLOW UP INSTRUCTIONS ARE FOLLOWS: 1. Do you have a private Doctor? If you do not have a private doctor, please ask for a resource list of physicians or clinics that may be able to assist you with follow up care. 2. The Emergency Physician has interpreted your x-rays. The X-Ray specialist will also review them. If there is a change in the findings, you will be notified in 48 hours when at all possible. 3. A lab test or culture has been done, your results will be reviewed and you will be notified if you need a change in treatment. ADDITIONAL INSTRUCTIONS AND INFORMATION: 1. Your care today has been supervised by a physician who is specially trained in emergency care. Many problems require more than one evaluation for a complete diagnosis and treatment. We recommend that you schedule your follow up appointment as recommended to ensure complete treatment of you illness or injury. If you are unable to obtain follow up care and continue to have a problem, or if your condition worsens, we recommend that you return to the ED. 2. We are not able to safely determine your condition over the phone nor are we able to give sound medical advice over the phone. For these safety reasons, if you call for medical advice we will ask you to come to the ED for further evaluation. 3. If you have any questions regarding these discharge instructions please call the ED at [phone]. SAFETY INFORMATION: In the interest of safety, wellness, and injury prevention; we encourage you to wear your sealbelt, if you smoke; quite smoking, and we encourage family to use a protective helmet for bicycling and other sporting events that present an increased risk for head injury. IF YOUR SYMPTOMS WORSEN OR NEW SYMPTOMS DEVELOP, OR YOU HAVE CONCERNS ABOUT YOUR CONDITION; OR IF YOUR CONDITION WORSENS WHILE YOU ARE WAITING FOR YOUR FOLLOW UP APPOINTMENT; EITHER CONTACT YOUR PRIMARY CARE DOCTOR, THE PHYSICIAN WHOSE NAME AND NUMBER YOU WERE GIVEN, OR RETURN TO THE ED IMMEDIATELY. Scripts Nitrofurantoin Monohyd/M-Cryst (MACROBID 100 MG CAPSULE) 100 Mg Capsule 100 CAP PO BID for UTI for 5 Days, #100 CAP Prov: ROLA RUIZ APRN 01/06/21 Attending Signature Attending Signature I have reviewed the PA/FOOD AND DRUG INSPECTOR's note and plan of care. I was available for consultation as needed during the patient's visit in the emergency department. I agree with the clinical impression, plan, and disposition. (MEAGHAN SANTIAGO DO) ROLA RUIZ APRN Jan 06, 2021 11:06 MEAGHAN SANTIAGO DO Jan 06, 2021 21:26
[2021-01-06 11:42] LABS: BASO # 0.2 x10^3/uL (0.0-0.2); BASO % 2 % (0-3); EOS # 0.1 x10^3/uL (0.0-0.7); EOS % 1 % (0-3); HEMATOCRIT 37.3 % (36.0-47.0); HEMOGLOBIN 12.4 g/dL (12.0-15.5); LYMPH # 3.2 x10^3/uL (1.0-4.8); LYMPH % 32 % (24-48); MEAN CORPUSCULAR HEMOGLOBIN 29 pg (25-35); MEAN CORPUSCULAR HGB CONC 33 g/dL (31-37); MEAN CORPUSCULAR VOLUME 87 fL (79-100); MONO # 0.7 x10^3/uL (0.0-1.1); MONO % 7 % (0-9); NEUT # 5.8 x10^3uL (1.8-7.7); NEUT % 58 % (31-73); PLATELET COUNT 370 x10^3/uL (140-400); RED BLOOD COUNT 4.31 x10^6/uL (3.50-5.40); RED CELL DISTRIBUTION WIDTH 15.3 % (11.5-14.5)
--- NOTE | 2021-01-06 11:54 | RAD ---
CT ABDOMEN+PELVIS WO History: Umbilical pain for 2 days. Comparison: None. Technique: Noncontrast CT of the abdomen and pelvis. Findings: The lung bases are clear. The nonopacified liver, pancreas, spleen, adrenals, and kidneys are unremar kable. The gallbladder surgically absent. The stomach, small bowel, appendix, and colon are unremarka ble. The bladder, uterus and adnexa are within normal limits. There are few prominent left periaortic lymph nodes measuring up to 6 mm diameter. No free intraperitoneal fluid or air. Umbilical hernia with 1.6 x 1.7 cm neck containing 5.3 x 6.0 x 4.5 cm protrusion of mesenteric fat wh ich demonstrates mild hazy attenuation. Transitional lumbosacral anatomy with a partially lumbarized S1 and rudimentary S1-S2 disc. Impression: 1. Umbilical hernia containing mildly inflamed appearing peritoneal fat measuring 5.3 x 6.0 x 4.5 cm . ------ Exposure: One or more of the following individualized dose reduction techniques were utilized for thi s examination: 1. Automated exposure control 2. Adjustment of the mA and/or kV according to patient size 3. Use of iterative reconstruction technique. Electronically signed by: Ralph Jones MD (01/06/2021 11:52 AM) [id number]
[2021-01-06 11:56] LABS: CALCIUM 9.2 mg/dL (8.5-10.1); CREATININE 0.5 mg/dL (0.6-1.0); GFR 145.9; POTASSIUM 4.4 mmol/L (3.5-5.1)
[2021-01-06 12:01] LABS: ALBUMIN 3.7 g/dL (3.4-5.0); ALBUMIN/GLOBULIN RATIO 0.9 (1.0-1.7); TOTAL BILIRUBIN 1.5 mg/dL (0.2-1.0); TOTAL PROTEIN 7.9 g/dL (6.4-8.2)
[2021-01-06 12:48] LABS: BILIRUBIN,URINE NEG (NEG); CLARITY,URINE CLOUDY; COLOR,URINE YELLOW; GLUCOSE,URINE NEG (NEG); NITRITE,URINE NEG (NEG); UROBILINOGEN,URINE 0.2 mg/dL (0.2 mg/dL)
[2021-01-06 12:49] LABS: BACTERIA,URINE FEW /HPF (0-FEW); SQUAMOUS EPITHELIAL CELL,UR FEW /LPF
[2021-01-06 13:45] VITALS: BP 107/88
[2021-01-06 13:47] LABS: U PREG PATIENT NEGATIVE (NEG)
[2021-01-06] MEDS ORDERED: NITR100C62 PO (13:50)
== END 2021-01-06 14:02 | disposition home or self-care (01) ==
LOC: ER 10:36
DX: K42.9 Umbilical hernia without obstruction or gangrene (principal); N39.0 Urinary tract infection, site not specified; Z90.49 Acquired absence of other specified parts of digestive tract; Z98.51 Tubal ligation status; Z88.5 Allergy status to narcotic agent
CPT/HCPCS: 36415; 74176; 80053; 81001; 81025; 83605; 83690; 85025; 87086; 96361; 96374; 99285; J1885; J7030

== ENCOUNTER 2021-04-20 11:38 | Emergency (ER) | payer MEDICAID ==
[~2021-04-20] VITALS: Ht 157.5 cm; Wt 102.0 kg
[~2021-04-20 11:38] MED LIST changes: +NITR100C62 PO
[2021-04-20 11:56] VITALS: BP 98/70
--- NOTE | 2021-04-20 11:59 | PHYS DOC ---
Past History Past Medical History: Anxiety, Hypothyroid, Other Additional Past Medical Histor: alopecia, umbilical hernia (SAHY MOSELEY Vega [employer]) Past Surgical History: Cholecystectomy, , Tonsillectomy, Tubal ligation, Other Additional Past Surgical Histo: LEFT UPPER ARM (SHAY MOSELEY Vega [employer]) Alcohol Use: None Drug Use: None (SHAY MOSELEY [employer]ega [employer]) Adult General Chief Complaint Chief Complaint: HEADACHE HPI HPI Patient is a 30-year-old female presents with history of hypothyroidism presenting today complaining of a headache, nasal congestion, cough, and fever, symptoms began 3 days ago. Patient denies any chest pain or shortness of breath. Reports several family members including the and children have similar symptoms. Patient states he was not vaccinated against COVID-19 (SHAY MOSELEY Vega [employer]) Review of Systems Review of Systems Constitutional: Reports fever Eyes: Denies change in visual acuity, redness, or eye pain [] HENT: Reports nasal congestion, denies sore throat Respiratory: Reports cough, denies shortness of breath. Cardiovascular: No additional information not addressed in HPI [] GI: Denies abdominal pain, nausea, vomiting, bloody stools or diarrhea [] : Denies dysuria or hematuria [] Musculoskeletal: Denies back pain or joint pain [] Integument: Denies rash or skin lesions [] Neurologic: Denies headache, focal weakness or sensory changes [] All other systems were reviewed and found to be within normal limits, except as documented in this note. (SHAY MOSELEY [employer]ega [employer]) Allergies Allergies Allergies Coded Allergies Type Severity Reaction Last Updated Verified morphine Allergy Unknown Swelling 01/06/21 Yes tramadol Allergy Unknown 01/06/21 Yes (SHAY MOSELEY [employer]ega [employer]) Physical Exam Physical Exam Constitutional: Well developed, well nourished, no acute distress, non-toxic appearance. [] HENT: Normocephalic, atraumatic, bilateral external ears normal, oropharynx moist, no oral exudates, nose normal. [] Eyes: PERRLA, EOMI, conjunctiva normal, no discharge. [] Neck: Normal range of motion, no tenderness, supple, no stridor. [] Cardiovascular:Heart rate regular rhythm, no murmur [] Lungs & Thorax: Bilateral breath sounds clear to auscultation [] Abdomen: Bowel sounds normal, soft, no tenderness, no masses, no pulsatile masses. [] Skin: Warm, dry, no erythema, no rash. [] Back: No tenderness, no CVA tenderness. [] Extremities: No tenderness, no cyanosis, no clubbing, ROM intact, no edema. [] Neurologic: Alert and oriented X 3, normal motor function, normal sensory function, no focal deficits noted. [] Psychologic: Affect normal, judgement normal, mood normal. [] (SHAY MOSELEY APRN) EKG EKG [] (SHAY MOSELEY APRN) Radiology/Procedures Radiology/Procedures [] (SHAY MOSELEY APRN) Heart Score C/O Chest Pain: N/A Risk Factors: Risk Factors: DM, Current or recent (<one month) smoker, HTN, HLP, family history of CAD, obesity. Risk Scores: Risk Factors: DM, Current or recent (<one month) smoker, HTN, HLP, family history of CAD, obesity. (SHAY MOSELEY APRN) Course & Med Decision Making Course & Med Decision Making Pertinent Labs and Imaging studies reviewed. (See chart for details) This is a well-appearing 30-year-old female patient with symptoms of headache, nasal congestion, fever, and cough, symptoms for 3 days. Patient was tested for COVID19. She will be called when results are available. Instructed to quarantine herself until she hears from us, rest, push fluids, maintain good energy. Tylenol or Motrin for pain or fever. (SHAY MOSELEY APRN) Course & Med Decision Making I was the Attending physician on the above date of service of this patient. This patient was evaluated, examined, treated, and dispositioned from the emergency department by the mid-level practitioner. Although I was working at the time , no assistance was requested. Electronically signed, Ankur Fernandez DO (ANKUR FERNANDEZ DO) Dale Disclaimer Dragon Disclaimer This electronic medical record was generated, in whole or in part, using a voice recognition dictation system. (SHAY MOSELEY APRN) Departure Departure: Impression: Primary Impression: Fever Additional Impressions: Cough Headache Person under investigation for COVID-19 Upper respiratory infection Disposition: HOME / SELF CARE / HOMELESS Condition: STABLE Referrals: HEIDY GOODMAN MD (PCP) follow up in one week Patient Instructions: Cough, Adult, [id number], Fever, Adult, Headache, FAQs, Upper Respiratory Infection, Adult, [id number] Additional Instructions: You were evaluated in the emergency room with symptoms suspicious of a viral i llness/COVID-19 or influenza. You were tested for both COVID-19 and influenza. Quarantine yourself until you get results from us. Rest, push fluids, maintain COVID19, wear your mask around other people. Please take Tylenol or Motrin for pain or fever. Follow-up with your doctor in 1 to 2 weeks. Problem Qualifiers Primary Impression: Fever Fever type: unspecified Qualified Codes: R50.9 - Fever, unspecified Additional Impressions: Headache Headache type: unspecified Headache chronicity pattern: acute headache Intractability: not intractable Qualified Codes: R51.9 - Headache, unspecified Upper respiratory infection URI type: unspecified URI Qualified Codes: J06.9 - Acute upper respiratory infection, unspecified SHAY MOSELEY APRN Apr 20, 2021 11:59 ANKUR FERNANDEZ DO Apr 21, 2021 06:00
[2021-04-20 12:23] LABS: INFLUENZA A PATIENT NEGATIVE (NEGATIVE); INFLUENZA B PATIENT NEGATIVE (NEGATIVE)
== END 2021-04-20 12:17 | disposition home or self-care (01) ==
LOC: ER 11:38
DX: U07.1 COVID-19 (principal); J06.9 Acute upper respiratory infection, unspecified; F41.9 Anxiety disorder, unspecified; E03.9 Hypothyroidism, unspecified; Z88.5 Allergy status to narcotic agent; Z88.6 Allergy status to analgesic agent
CPT/HCPCS: 87426; 87804; 99283